=== PATIENT | female | born 1950 | race Caucasian/White ===

== ENCOUNTER 2020-10-16 11:27 | Emergency (ER) | payer OTHER, SELFPAY ==
[2020-10-16] VITALS (36 sets, daily range): BP systolic 118–163; BP diastolic 58–96; PULSE 91–122; RESP 14–30; TEMP 36.9; O2SAT 93–99
--- NOTE | ~2020-10-16 | CT_ITS ---
EXAMINATION: CT abdomen pelvis w con EXAM DATE: 10/16/2020 13:41 INDICATION: Abd distention Abd distention x 2mo, severe x 2wks. TECHNIQUE: Spiral CT of the abdomen and pelvis was performed following intravenous injection of 100 m L Omnipaque 350. Axial, coronal and sagittal images were reviewed. The dose-length product (DLP) fo r this examination was 1029.40 mGy-cm. The exposure was tailored according to patient size (auto mA exposure control), and iterative reconstruction (ASIR) was used as additional dose reduction techniqu e. There is no prior study for comparison. FINDINGS: There is complex cystic pelvic mass measuring 13 x 14 x 18 cm, most likely arising from the left ovary given position of the left gonadal veins, most likely cystic ovarian neoplasm. There is a lso a large amount of ascites within the liver, without any definite discrete nodularity/peritoneal i mplant. There is moderate-sized left inguinal hernia containing ascites. Liver and splenic granulomata. There is 8mm left adrenal gland nodule, indeterminate but statisticall y most likely adenoma. Pancreas is unremarkable. Gallbladder is unremarkable. No biliary obstruction . Portal and splenic veins are patent. Kidneys enhance symmetrically. There is no hydronephrosis. The uterus is unremarkable. The bladder is undistended at time of imaging. Suspicion of pelvic pr olapse with some bladder extending below the pelvic floor. There is no retroperitoneal or pelvic lymp hadenopathy. The appendix is not identified. There is scattered moderate colonic diverticulosis with sensitivity f or diverticulitis decreased due to the ascites There is moderate-sized gastroesophageal hiatal herni a. There is expected amount of colonic stool. No free intraperitoneal gas. Heart is normal in si ze. There are small bilateral pleural effusions with adjacent bibasilar segmental atelectasis. There are no osteoblastic or osteolytic lesions identified. IMPRESSION: 1. Complex cystic pelvic mass most likely left ovarian cancer. 2. Large ascites, also extending into left inguinal hernia. No peritoneal surface nodularity. 3. Suspicion bladder inferior margin demonstrating pelvic prolapse. 4. Moderate colonic diverticulosis. 5. Moderate hiatal hernia. 6. Small pleural effusions and adjacent atelectasis. Reviewed, dictated and finalized at [facility] IMPRESSION: 1. Complex cystic pelvic mass most likely left ovarian cancer. 2. Large ascites, also extending into left inguinal hernia. No peritoneal surf romelia nodularity. 3. Suspicion bladder inferior margin demonstrating pelvic prolapse. 4. Moderate colonic diverticulosis. 5. Moderate hiatal hernia. 6. Small pleural effusions and adjacent atelectasis.
[2020-10-16] MEDS: SODIUM CHLORIDE 0.9% IV 500 ML 999 ML IV CONT (12:58)
[2020-10-16 13:01] LABS: Add Urine Microscopic? YES; Appearance Urine Clear (Clear); Basophils Absolute Auto 0.03 K/mm3 (0.00-0.10); Basophils Percent Auto 0.5 % (0.0-1.0); Bilirubin Urine 2+ (Negative); Blood Urine 1+ (Negative); Color Urine Yellow (Yellow); Eosinophils Absolute Auto 0.02 K/mm3 (0.02-0.50); Eosinophils Percent Auto 0.3 % (1.0-6.0); Glucose Urine UA Negative (Negative); Hematocrit 37.7 % (35.0-42.0); Hemoglobin 12.5 g/dL (11.7-13.8); Immature Granulocyte Absolute 0.02 K/mm3 (0.00-0.00); Immature Granulocyte Percent A 0.3 % (0.0-0.0); Ketones Urine 2+ (Negative); Leukocyte Esterase Ur Trace LEU/UL (Negative); Lymphocytes Absolute Auto 0.89 K/mm3 (1.10-4.50); Lymphocytes Percent Auto 14.3 % (18.0-42.0); Mean Corpuscular HGB Conc 33.2 g/dL (32.0-36.0); Mean Corpuscular Hemoglobin 30.6 pg (27.0-31.0); Mean Corpuscular Volume 92.4 fL (78.0-102.0); Mean Platelet Volume 9.7 fl (9.2-11.8); Monocytes Absolute Auto 0.49 K/mm3 (0.10-0.90); Monocytes Percent Auto 7.9 % (2.0-11.0); Neutrophils Absolute Auto 4.8 K/mm3 (1.7-7.2); Neutrophils Percent Auto 76.7 % (50.0-70.0); Nitrate Urine Negative (Negative); Platelet Count Result 293 K/mm3 (150-420); Protein Urine 1+ (Negative); Red Blood Count 4.08 M/mm3 (4.20-5.40); Red Cell Distribution Width 11.9 % (11.6-14.4); Specific Grav Ur >= 1.030 (1.010-1.020); White Blood Count 6.2 K/mm3 (4.8-10.8); pH Urine 5.5 (5.0-8.0)
[2020-10-16 13:11] LABS: Bacteria Urine 1+ /hpf; Mucus Urine Moderate /lpf; Squamous Epithelial Cell Urine Moderate /hpf (Few); WBC Urine 0-3 /hpf (0-3)
[2020-10-16 13:12] LABS: Estimated CRCL calculation 59 ml/min; Estimated Glomerular Filt Rate > 60
[2020-10-16 13:15] LABS: Alanine Aminotransferase 10 U/L (14-59); Albumin Level 2.9 g/dL (3.4-5.0); Alkaline Phosphatase 57 U/L (46-116); Anion Gap 12 mmol/L (8-16); Aspartate Amino Transferase 13 U/L (15-37); Bilirubin,Total 0.7 mg/dL (0.00-1.00); Blood Urea Nitrogen 17 mg/dL (7-18); Calcium 8.7 mg/dL (8.5-10.1); Carbon Dioxide 23 mmol/L (21-32); Chloride 102 mmol/L (98-108); Glucose 83 mg/dL (70-99); Lipase 50 U/L (73-393); Osmolality Calculated 284 mOsm/kg (285-295); Potassium 3.7 mmol/L (3.5-5.1); Sodium 137 mmol/L (136-145); Total Protein 6.5 g/dL (6.4-8.2)
[2020-10-16 13:18] LABS: CRP 1.3 mg/dL (0.0-0.9)
--- NOTE | 2020-10-16 13:25 | PC.NURSE ---
pt to xray per wheelchair.
[2020-10-16 13:30] LABS: Lactic Acid Reflex 1.1 mmol/L (0.4-2.0)
--- NOTE | 2020-10-16 14:20 | ED.ABDPAIN ---
HPI - Abdominal Pain General Chief Complaint: Abdominal Pain Stated Complaint: Stomach bloat/Pains Time Seen by Provider: 10/16/20 11:32 Source: patient and RN notes reviewed Mode of arrival: ambulatory Limitations: no limitations History of Present Illness HPI narrative: patient states that she has been having some increased abdominal distention for the last 2 months. The last 2-3 days it has gotten much worse to where she is having nausea it is difficult for her to eat. She has been drinking mostly water and Sprite. Anything else makes her nauseous. She denies any constipation. She does not have any medical problems. She denies any abnormal weight loss. She has not gone to or needed to go to a doctor in the last 20 years. MD elicited complaint: abdominal pain Pertinent past history: none Onset (ago): month(s) (2) Pain Consistency: intermittent Severity: mild Quality: fullness Radiation: none Exacerbating factors: eating Relieving factors: nothing Associated symptoms: nausea Related Data Home Medications Medication Instructions Recorded Confirmed No Home Medications 10/16/20 10/16/20 Allergies Allergy/AdvReac Type Severity Reaction Status Date / Time codeine AdvReac Unknown Verified 10/16/20 13:03 Review of Systems Review of Systems: All systems reviewed & are unremarkable except as noted in HPI and below Constitutional: Constitutional: Denies chills and Denies fever(s) Comments: denies any abnormal weight loss Gastrointestinal: Gastrointestinal: Reports bloating, Denies constipation and Denies diarrhea PMFSH Past Medical History Medical History (Updated 10/17/20 @ 00:00 by Background Daemon) No active medical problems Surgical History Surgical History (Updated 10/16/20 @ 14:57 by Robin Isaac MD) History of bilateral tubal ligation Social History Social History (Updated 10/16/20 @ 14:57 by Robin Isaac MD) Smoking status: Never smoker Alcohol intake: never Substance use: never Exam Const: General: no acute distress and ill appearing chronically Nutritional Appearance: well nourished Orientation/consciousness: patient oriented x3 HENMT: Head: normal to inspection Ears: external ears normal General nose exam: Normal external nose present Mouth: Yes lip normal and Yes moist mucous membranes Eyes: Conjunctivae: conjunctivae normal Pupils: Equal, round and reactive pupils present EOM: EOMs intact bilaterally Neck: Neck: normal visual inspection Resp: Effort & Inspection: normal respiratory effort Auscultation: clear to auscultation bilaterally Cardio: Rate: regular rate Rhythm: regular rhythm GI: Inspection: distended GI Palp: Yes Soft to palpation, Yes Tenderness to palpation present (GI) (Generalized), No Guarding due to palpation present (GI) and Yes Palpable mass present Percussion: Yes dullness to percussion Auscultation: absent bowel sounds Back/Spine/Pelvis: Back: No CVA tenderness Cervical Spine: cervical ROM normal Thoracic/Lumbar Spine: thoraco-lumbar ROM normal Skin: General skin exam: normal color and no jaundice Rashes: no rashes Neuro: General: patient oriented x3, moves all extremities, no meningeal signs and no focal motor deficits Speech: normal speech Extrem: General: normal to inspection and no clubbing, cyanosis or edema Psych: Appearance: grossly normal and well kempt Mental Status: mental status grossly normal Affect: normal affect Attitude: cooperative Thought content: Yes Normal thought content present Course Vital Signs Vital signs: Vital Signs Temperature 36.9 C 10/16/20 12:20 Pulse Rate 122 H 10/16/20 12:20 Respiratory Rate 10/16/20 12:20 Blood Pressure 151/96 H 10/16/20 12:20 Pulse Oximetry 96 10/16/20 12:20 Temperature 36.9 C 10/16/20 21:12 Pulse Rate 100 10/16/20 21:12 Respiratory Rate 10/16/20 21:12 Blood Pressure 142/83 H 10/16/20 21:12 Pulse Oximetry 95 10/16/20 21:12
--- NOTE | 2020-10-16 14:31 | PC.NURSE ---
call to [facility], per family request for transfer. Spoke with Loni, awaiting call back.
--- NOTE | 2020-10-16 14:40 | PC.NURSE ---
spoke with hospitalist from [facility] Dr Cristobal Guillory, updated about pt. Dr Guillory states we have no gyno oncology at our facility . dr presley notified of same.
[2020-10-16] MEDS: SODIUM CHLORIDE 0.9% IV 1,000 ML 125 ML IV CONT (14:57)
--- NOTE | 2020-10-16 14:59 | PC.NURSE ---
call to [facility] per family request, erp in with pt and daughter, discussed plan of care and ct results.
[2020-10-16] MEDS: LORazepam INJ (*CRX) 2 MG/ML VIAL 1 MG IV PUSH (15:04)
--- NOTE | 2020-10-16 15:07 | PC.NURSE ---
spoke with linda at [facility], waiting call back.
--- NOTE | 2020-10-16 15:29 | PC.NURSE ---
dr presley talking with dr barry at [facility]
--- NOTE | 2020-10-16 15:43 | PC.NURSE ---
call to [facility], spoke with linda, facesheet faxed as requested. awaiting bed placement.
--- NOTE | 2020-10-16 16:07 | PC.NURSE ---
report to carmen ferrer. pt resting per cot, no complaint or needs at this time.
--- NOTE | 2020-10-16 16:57 | PC.NURSE ---
Pt resting comfortably on stretcher, awaiting bed assignment at [facility].
--- NOTE | 2020-10-16 18:15 | PC.NURSE ---
Dont[facility] contacted for updated bed asssignment status, no bed assignment at this time. unknown how long.
--- NOTE | 2020-10-16 19:04 | PC.NURSE ---
report to [facility]
--- NOTE | 2020-10-16 20:01 | PC.NURSE ---
Pt. sitting in bed, given jello cup to eat, pt. sipping ice chips and watching TV. Pt. has bed assigned at [place], awaiting call back for report. Pt. informed of transfer and room assignment. VSS.
--- NOTE | 2020-10-16 21:41 | PC.NURSE ---
Report given to GBAAS, pt. transferred s difficulty. Pt. ambulated to cot steady gait. Denies any pain.
== END 2020-10-16 21:42 | disposition short-term general hospital (02) ==
PROVIDERS: Emergency Provider Emergency Medicine
DX: N83.9 Noninflammatory disorder of ovary, fallopian tube and broad ligament, unspecified (principal); R18.8 Other ascites
CPT/HCPCS: 36415; 74177; 80053; 81001; 83605; 83690; 85025; 86140; 96361; 96374; 99285; J2060; J7030; J7040; Q9965; Q9967